=== PATIENT | female | born 1980 | race Caucasian/White ===

== ENCOUNTER 2017-04-06 08:27 | Emergency (ER) | payer OTHER ==
[2017-04-06 08:34] VITALS: BP 144/94
--- NOTE | 2017-04-06 09:34 | RAD ---
INDICATION: Left flank pain COMPARISON: None TECHNIQUE: Noncontrast axial source images were acquired from the level hemidiaphragms to the symphysis pubis as part of CT imaging for renal stone. Lung bases: The lung bases are clear. Liver: There is moderate hepatomegaly. Noncontrast imaging shows no evidence of a hepatic mass or ductal dilatation. Gallbladder: There are no calcified gallstones. There is no evidence of wall thickening or pericholecystic fluid.. Spleen: The spleen is normal in size. The noncontrast CT appearance is normal. Pancreas: Noncontrast imaging shows no pancreatic mass or ductal dilitation. Adrenal glands: No masses are identified. Kidneys/Bladder: There are multiple tiny nonobstructive left renal calculi. These are in the 1 to 2 mm range. There are no additional calcifications of urinary significance. There is an incompletely characterized 1.7 cm renal cortical hypodensity in the midpole region. This could be further evaluated with renal sonography. There are no perinephric collections Adenopathy: There is no evidence of intraperitoneal or retroperitoneal adenopathy. Evaluation is limited without oral contrast. Fluid collections: There are no free or localized fluid collections. Vessels: The aorta and iliac vessels are normal in caliber. There are no significant atherosclerotic changes. The IVC appears normal Pelvic organs: The uterus and adnexa appear normal GI tract: Evaluation of the bowel is limited without oral contrast. The upper GI tract is grossly normal. The ileocecal valve is normal. There is moderate stool in the right colon. There are scattered diverticula throughout the colon. There is no CT evidence of acute diverticulitis. There is limited evaluation of the appendix which appears normal. Soft tissues: No soft tissue abnormalities of the extraperitoneal abdomen or pelvis are identified. Osseous structures: There are no acute osseous findings. IMPRESSION: 1. Hepatomegaly. 2. Nonobstructive left-sided nephrolithiasis. 3. Incompletely characterized 1.7 cm left renal cortical hypodensity (see above). 4. Moderate retained stool right colon. Scattered diverticula. No CT evidence of acute diverticulitis.
--- NOTE | 2017-04-06 10:24 | UC ---
Dmitri Rao Angela, scribed for Vipul Parrish MD on 04/06/17 at 0856 . Complaint Female HPI - HPI Summary HPI Summary: Pt is a 36 y/o female presenting to [facility] c/o left upper flank pain in the setting of a UTI 1.5 weeks (without antibiotics). Pt notes her pain radiates to her upper abdomen and her pain returned yesterday. She notes she was unable to sleep last night secondary to pain. She endorses nausea and 1 episode of vomiting. Pt denies fever, chills, dysuria, hematuria. Pt states no PMHx of UTIs. She was told her urine culture showed E.coli. - History Of Current Complaint Chief Complaint: UCGU Stated Complaint: ABD PAIN NAUSEA Hx Obtained From: Patient Onset/Duration: Sudden Onset Timing: Constant Pain Intensity: 7 Pain Scale Used: 0-10 Numeric Aggravating Factor(s): Nothing Alleviating Factor(s): Nothing Associated Signs And Symptoms: Positive: Back Pain - left upper flank pain, Nausea, Vomiting(# Of Episodes =) - 1. Negative: Fever - Allergies/Home Medications Allergies/Adverse Reactions: Allergies Allergy/AdvReac Type Severity Reaction Status Date / Time Amoxicillin Allergy Rash Verified 05/17/16 12:47 PMH/Surg Hx/FS Hx/Imm Hx - Additional Past Medical History Additional PMH: Hiatal hernia. - Surgical History Surgical History: Yes Surgery Procedure, Year, and Place: RT WRIST SURGERY - Xs 2 - GANGLION CYST & TENDONITIS,. RT LUMPECTOMY - BENIGN LUMP REMOVED - Social History Alcohol Use: Weekly Alcohol Amount: 3 PER WEEK Substance Use Type: None Smoking Status (MU): Never Smoked Tobacco Review of Systems Constitutional: Negative Skin: Negative Eyes: Negative ENT: Negative Respiratory: Negative Cardiovascular: Negative Gastrointestinal: Abdominal Pain, Vomiting, Nausea Genitourinary: Negative Motor: Negative Musculoskeletal: Other: - left upper flank pain Neurological: Negative Psychological: Negative All Other Systems Reviewed And Are Negative: Yes Physical Exam Triage Information Reviewed: Yes Vital Signs: Initial Vital Signs Temp 99 F 04/06/17 08:31 Pulse 61 04/06/17 08:31 Resp 16 04/06/17 08:31 BP 144/94 04/06/17 08:31 Pulse Ox 100 04/06/17 08:31 Vital Signs Reviewed: Yes - Additional Comments The patient is well-nourished in no acute distress and appears discomfortable. The skin is warm and dry and skin color reflects adequate perfusion. HEENT: The head is normocephalic and atraumatic. The pupils are equal and reactive. The conjunctivae are clear and without drainage. Nares are patent and without drainage. Neck is supple with full range of motion and non-tender. There are no carotid bruits. There is no neck vein distension. Respiratory: Chest is non-tender. Lungs are clear to auscultation and breath sounds are symmetrical and equal. Cardiovascular: Hear is regular rate and rhythm. There is no murmur or rub auscultated. There is no peripheral edema and pulses are symmetrical and equal. Abdomen: The abdomen is soft and non-tender. There are no reproducible abdominal pain. There are normal bowel sounds heard in all four quadrants and there is no organomegaly palpated. Musculoskeletal: There is no back pain noted. Extremities are non-tender with full range of motion. There is good capillary refill. There is left CVA tenderness. Neurological: Patient is alert and oriented to person, place and time. The patient has symmetrical motor strength in all four extremities. Psychiatric: The patient has an appropriate affect and does not exhibit any anxiety or depression. Diagnostics - Radiology CT Abd/Pel Xray Interpretation: Positive (See Comments) - IMPRESSION: 1. Hepatomegaly. 2. Nonobstructive left-sided nephrolithiasis. 3. Incomplete characterized 1.7 cm left renal cortical hypodensity. 4. Moderate retained stool right colon. Scattered diverticula. No CT evidence of acute diverticulitis. Radiology Interpretation Completed By: Radiologist Complaint Female Dx - Course Course Of Treatment: High blood pressure noted. I reviewed the results with the pt, she has a left sided pyelonephritis, non-obstructive. She is taking vitamins. Pt will be discharged with Sulfamethox. - Differential Dx/Diagnosis Differential Diagnosis/HQI/PQRI: Renal Colic, Urinary Tract Infection Provider Diagnoses: Pyelonephritis, left. Discharge - Discharge Plan Condition: Stable Disposition: HOME Prescriptions: Sulfamethox/Trimethoprim DS* [Bactrim DS 800/160 TAB*] 1 tab PO BID #20 tab Patient Education Materials: Kidney Infection (ED) Referrals: Susie Chinchilla MD [Primary Care Provider] - Additional Instructions: Your blood pressure was elevated during today's visit. Please follow up with your primary care physician for a blood pressure reading and to assure your symptoms are improving. The documentation as recorded by the Dmitri liz Angela accurately reflects the service I personally performed and the decisions made by me, Vipul Parrish MD.
== END 2017-04-06 10:13 | disposition home or self-care (01) ==
LOC: UCEAST 08:27
DX: N12 Tubulo-interstitial nephritis, not specified as acute or chronic (principal); Z32.02 Encounter for pregnancy test, result negative
CPT/HCPCS: 74176; 81003; 84702; 87077; 87086; 87186; 99212; G0463

== ENCOUNTER 2020-01-10 10:34 | Observation (INO) ==
[~2020-01-10 10:34] MED LIST: Dexamethasone IV 4 MG/ML VIAL 1 ml VIAL IV SLOW PU ONE; Famotidine IV 10 MG/ML 2 ml VIAL (20 mg) IV ONE; Lactated Ringers 1000 ml BAG 1,000 ML IV SCH
[2020-01-10] MEDS ORDERED: Bupivacaine 0.25% SDV 30 ML ONE ×2 (10:54→12:35)
[2020-01-10] MEDS ORDERED: Bupivacaine 0.5% 50 ML MDV VIAL ONE (10:54)
[2020-01-10] MEDS ORDERED: Famotidine IV 10 MG/ML 2 ml VIAL (20 mg) ONE (11:08)
[2020-01-10] MEDS ORDERED: Dexamethasone IV 4 MG/ML VIAL 1 ml VIAL ONE (11:08)
[2020-01-10] MEDS ORDERED: cefTRIAXone(*) 2 GM ADDV.VIAL ONE (11:08)
[2020-01-10] MEDS ORDERED: Bupivacaine 0.25% EPI 200,000 30 ML SDV ONE (11:23)
[2020-01-10] MEDS ORDERED: Prochlorperazine 5 mg/ml 2 ml VIAL (10 mg) IV PRN (11:36)
[2020-01-10] MEDS ORDERED: fentaNYL 100 mcg/2 ml 50 MCG/ML VIAL IV PRN (11:36)
[2020-01-10] MEDS ORDERED: oxyCODONE/Acetamin 5/325 mg TAB PO PRN ×2 (11:36→15:37)
[2020-01-10] MEDS ORDERED: Naloxone 0.4 mg VIAL 0.4 mg/ml 1 ml VIAL IV PRN (11:36)
[2020-01-10] MEDS ORDERED: HYDROcodone/ACETAMIN 5/325 mg TAB PO PRN (11:36)
[2020-01-10 11:42] LABS: Hematocrit 40 % (35-47); Mean Corpuscular HGB Conc 35 g/dL (31-36); Mean Corpuscular Hemoglobin 33 pg (27-31); Mean Corpuscular Volume 93 fL (80-97); Mean Platelet Volume 9.3 fL (7.4-10.4); Platelet Count 202 10^3/uL (150-450); Red Cell Distribution Width 13 % (10-15); White Blood Count 4.5 10^3/uL (3.5-10.8)
[2020-01-10] MEDS ORDERED: Midazolam 5 mg/5 ml VIAL 1 mg/ml 5 ml VIAL (5 mg) ONE (11:46)
[2020-01-10] MEDS ORDERED: fentaNYL 100 mcg/2 ml 50 MCG/ML VIAL ONE ×2 (11:46→14:51)
[2020-01-10] MEDS ORDERED: Succinylcholine 200 mg VIAL 20 mg/ml 10 ml VIAL (200 mg) ONE (11:47)
[2020-01-10] MEDS ORDERED: Lidocaine 2% PF 5 ML VIAL ONE (11:47)
[2020-01-10] MEDS ORDERED: Propofol 10 MG/ML 20 ML BTL ONE (11:47)
[2020-01-10] MEDS ORDERED: Rocuronium 50 mg VIAL 10 mg/ml 5 ml VIAL (50 mg) ONE (11:49)
[2020-01-10] MEDS ORDERED: ceFOXitin(*) 1 GM VIAL ONE (12:49)
[2020-01-10] MEDS ORDERED: Phenylephrine 40 mcg/mL 10mL (400mcg) SYRINGE ONE (12:58)
[2020-01-10] MEDS ORDERED: Ondansetron 4 mg VIAL 2 MG/ML 2 ml VIAL ONE (13:30)
[2020-01-10] MEDS ORDERED: Glycopyrrolate IV 0.2 MG/ML 1 ML VIAL ONE (15:18)
[2020-01-10] MEDS ORDERED: Neostigmine Methylsulfate 3 MG/3 ML SYRINGE ONE (15:18)
[2020-01-10] MEDS ORDERED: Ondansetron 4 mg VIAL 2 MG/ML 2 ml VIAL IV PRN (15:37)
[2020-01-10] MEDS: Lactated Ringers 1000 ml BAG 1,000 ML IV SCH (17:22)
[2020-01-10] MEDS ORDERED: NON FORMULARY MED (Norethindrone Acetate 5 MG) PO SCH ×2 (18:00→21:00)
[2020-01-11] MEDS: Lactated Ringers 1000 ml BAG 1,000 ML IV SCH (01:07)
[2020-01-11 05:51] LABS: ABS Lymphocytes 1.8 10^3/ul (1.0-4.8); ABS Monocytes 0.6 10^3/ul (0-0.8); Eosinophil % 0.1 %; Hematocrit 35 % (35-47); Hemoglobin 12.2 g/dL (12.0-16.0); Mean Corpuscular HGB Conc 35 g/dL (31-36); Mean Corpuscular Hemoglobin 33 pg (27-31); Mean Corpuscular Volume 94 fL (80-97); Mean Platelet Volume 9.7 fL (7.4-10.4); Platelet Count 183 10^3/uL (150-450); Red Blood Count 3.75 10^6 /uL (3.70-4.87); Red Cell Distribution Width 12 % (10-15)
[2020-01-11 08:14] VITALS: BP 120/74
[2020-01-13] MEDS ORDERED: Scopolamine PATCH Remove NOTE PATCH OFF ONE (06:00)
== END 2020-01-11 11:35 | disposition home or self-care (01) ==
LOC: SSU 10:34 → OR 10:34
PROVIDERS: ADMIT Obstetrics & Gynecology; ATTEND Obstetrics & Gynecology